=== PATIENT | female | born 2000 | race Hispanic/Latino ===

== ENCOUNTER 2023-03-28 12:16 | Emergency (ER) | payer MEDICAID ==
[~2023-03-28] VITALS: Ht 157.5 cm; Wt 61.7 kg
[2023-03-28 12:16] VITALS: BP 120/66; PULSE 93; RESP 16; TEMP 99.4; O2SAT 100
[2023-03-28] MEDS ORDERED: TORADOL IV STA (12:35)
[2023-03-28 12:47] LABS: BASOPHIL % 0.3 % (0.0-0.2); EOSINOPHIL % 0.3 % (0.0-5.0); HEMATOCRIT(ML) 35.8 % (36.0-46.0); HEMOGLOBIN 11.3 g/dL (12.0-15.0); LYMPHOCYTES # 1.38 10^3/uL1 (1.0-4.8); MEAN CORP HGB 25.7 pg (26-34); MEAN CORP HGB CONCENTRATION 31.6 g/dL (33-36.5); MEAN CORP VOLUME 81.5 fL (78-100); MONOCYTES # 0.5 10^3/uL (0.3-0.8); MONOCYTES % 4.4 % (5.0-12.0); NEUTROPHIL # 8.7 10^3/uL (1.8-7.7); NEUTROPHILS % 81.8 % (41.0-85.0); PLATELET COUNT 285 10^3/uL (150-400); RED BLOOD CELL 4.39 10^6/uL (4.00-5.20); RED CELL DISTRIBUTION WIDTH 14.8 % (11.5-14.5); WHITE BLOOD CELL 10.6 10^3/uL (4.5-11.0)
[2023-03-28] MEDS ORDERED: TORADOL ONE (12:47)
[2023-03-28 12:51] LABS: +ADD MANUAL DIFF(NO CHRG) NO
[2023-03-28 13:04] LABS: PROTHROMBIN PROTIME 10.7 SEC (9.7-11.6)
[2023-03-28 13:08] LABS: ALBUMIN(ML) 4.1 g/dL (3.4-5.0); ALBUMIN/GLOBULIN RATIO 0.976; ANION GAP 13.8; CALCIUM 9.2 mg/dL (8.4-10.5); CARBON DIOXIDE 24.7 mmol/L (20.0-32); CREATININE SERUM 0.77 mg/dL (0.59-1.40); EST GFR, NON-AA 91.3 (>/=60); POTASSIUM 3.5 mmol/L (3.6-5.2)
[2023-03-28 13:16] LABS: BILIRUBIN,URINE NEGATIVE (NEGATIVE); LEUKOCYTE ESTERASE ,URINE TRACE (NEGATIVE); NITRATE,URINE NEGATIVE (NEGATIVE)
[2023-03-28 13:23] LABS: APPEARANCE,URINE CLOUDY; UA COLOR YELLOW
[2023-03-28 14:48] VITALS: BP 149/84; PULSE 69; RESP 16; TEMP 99.4; O2SAT 100
[2023-03-28 17:12] VITALS: BP 115/73; PULSE 70; RESP 16; TEMP 99.4; O2SAT 100
== END 2023-03-28 17:14 | disposition home or self-care (01) ==
LOC: ER 12:16
DX: N39.0 Urinary tract infection, site not specified (principal); R10.30 Lower abdominal pain, unspecified
CPT/HCPCS: 99285; 74177; 96374; 87086; 80053; 85025; 36415; 81001; 81025; 85610; 85730; 87077; 87186; 74176; J1885; Q9965